=== PATIENT | female | born 1980 | race Hispanic/Latino ===

== ENCOUNTER 2021-11-25 16:37 | Emergency (ER) | payer SELFPAY ==
[~2021-11-25] VITALS: Ht 152.4 cm; Wt 78.5 kg
[2021-11-25] MEDS ORDERED: VENTOLIN HFA18 GM INH (18:13)
== END 2021-11-25 18:29 | disposition home or self-care (01) ==
LOC: FSED 16:57
DX: R05.9 Cough, unspecified (principal); J06.9 Acute upper respiratory infection, unspecified; J98.01 Acute bronchospasm; E11.9 Type 2 diabetes mellitus without complications
CPT/HCPCS: 99282

== ENCOUNTER 2022-07-03 09:53 | Emergency (ER) | payer SELFPAY ==
[~2022-07-03] VITALS: Ht 152.4 cm; Wt 82.6 kg
[~2022-07-03 09:53] MED LIST: VENTOLIN HFA18 GM INH
[2022-07-03] MEDS ORDERED: CEPHALEXIN500 MG PO (11:34)
[2022-07-03] MEDS ORDERED: BACTRIM DS TAB1 EACH PO (11:36)
[2022-07-03] MEDS ORDERED: METFORMIN HCL500 MG PO (11:38)
[2022-07-03 11:46] VITALS: BP 128/77
== END 2022-07-03 12:08 | disposition home or self-care (01) ==
LOC: FSED 10:04
DX: L02.211 Cutaneous abscess of abdominal wall (principal); E11.65 Type 2 diabetes mellitus with hyperglycemia; Z79.84 Long term (current) use of oral hypoglycemic drugs; Z91.14 Patient's other noncompliance with medication regimen
CPT/HCPCS: 83518; 87400; 99282

== ENCOUNTER 2022-07-08 10:30 | Emergency (ER) | payer SELFPAY ==
[~2022-07-08] VITALS: Ht 152.4 cm; Wt 86.2 kg
[~2022-07-08 10:30] MED LIST changes: +BACTRIM DS TAB1 EACH PO; +CEPHALEXIN500 MG PO; +METFORMIN HCL500 MG PO
[2022-07-08] MEDS: SODIUM CHLORIDE 0.9% 1000ML 1,000 ML IV SCH ×2 (12:20→13:20)
[2022-07-08] MEDS ORDERED: Vancomycin IV 1 GM in SODIUM CHLORIDE 0.9% 250ML 250 ML IV ONE (12:45)
[2022-07-08] MEDS ORDERED: SODIUM CHLORIDE 0.9% 1000ML 1,000 ML ONE (13:28)
[2022-07-08] MEDS ORDERED: Vancomycin IV 1 GM VIAL ONE (13:28)
[2022-07-08] MEDS ORDERED: SODIUM CHLORIDE 0.9% 100 ML ONE (13:28)
[2022-07-08] MEDS ORDERED: SODIUM CHLORIDE 0.9% 250ML 250 ML ONE (13:28)
[2022-07-08] MEDS ORDERED: CLINDAMYCIN HC300 MG PO (15:57)
[2022-07-08] MEDS ORDERED: METFORMIN HCL1000 MG PO (15:59)
[2022-07-08 16:28] VITALS: BP 118/63
== END 2022-07-08 16:30 | disposition home or self-care (01) ==
LOC: FSED 10:39
DX: L02.211 Cutaneous abscess of abdominal wall (principal); E11.65 Type 2 diabetes mellitus with hyperglycemia; Z91.19 Patient's noncompliance with other medical treatment and regimen; Z79.84 Long term (current) use of oral hypoglycemic drugs
CPT/HCPCS: 10060; 80053; 81003; 81025; 85025; 99284; J0690; J3370; J7030; J7050 ×2